=== PATIENT | female | born 1975 | race Caucasian/White ===

== ENCOUNTER 2017-09-02 13:54 | Emergency (ER) | payer OTHER ==
[~2017-09-02] VITALS: Ht 167.6 cm; Wt 72.6 kg
[~2017-09-02 13:54] MED LIST: DICYCLOMINE HCL10 MG; RANITIDINE HCL300 MG; TRIMETHOBENZAM300 MG; WELLBUTRIN XL150 M1
== END 2017-09-02 21:30 | disposition home or self-care (01) ==
LOC: ER 13:54
DX: R11.10 Vomiting, unspecified (principal); K29.70 Gastritis, unspecified, without bleeding; R51 Headache